=== PATIENT | male | born 1965 | race Caucasian/White ===

== ENCOUNTER 2022-07-19 09:49 | Outpatient (REF) | payer MEDICARE, MEDICAID, SELFPAY ==
[2022-07-19 15:01] LABS: Calculated LDL 195 mg/dL (<100); Cholesterol 263 mg/dL (<200); HDL Cholesterol 39 mg/dL (40-60); Triglyceride 146 mg/dL (<150)
== END 2022-07-19 09:50 | disposition home or self-care (01) ==
LOC: NCHCN 09:49
PROVIDERS: PCP Family Medicine; Visit Provider Family Medicine
DX: Z13.220 Encounter for screening for lipoid disorders (principal)
CPT/HCPCS: 80061

== ENCOUNTER 2023-05-02 10:56 | Outpatient (REF) | payer MEDICARE, MEDICAID, SELFPAY ==
[2023-05-02 14:34] LABS: HCT 46.4 % (40.0-50.0); HGB 15.9 g/dL (13.5-17.5); MCH 32.7 pg (27.0-33.0); MCHC 34.3 % (32.0-36.0); MCV 96 fL (80-95); MPV 11.3 fL (8.0-11.0); Platelet Count 194 10^3/uL (130-400); RBC 4.86 10^6/uL (4.36-5.78); RDW 13.1 % (11.8-14.1); RDW-SD 45.7 fL; WBC 7.11 10^3/uL (4.4-10.8)
[2023-05-02 14:39] LABS: ALT 85 U/L (16-63); AST 89 U/L (15-37); Albumin 3.8 g/dL (3.4-5.0); Alkaline Phosphatase 82 U/L (46-116); Anion Gap 5.6 mmol/L (3-11); BUN 14 mg/dL (7-18); Bilirubin, Total 0.4 mg/dL (0.2-1.0); CO2 30.4 mmol/L (21.0-32.0); CREATININE 1.1 mg/dL (0.70-1.30); Calcium 9.7 mg/dL (8.5-10.1); Chloride 99 mmol/L (98-107); Estimated GFR 78.79 (mL/min/1.73m2); Glucose 147 mg/dL (74-106); Sodium 135 mmol/L (136-145); Total Protein 7.8 g/dL (6.4-8.2)
== END 2023-05-02 10:57 | disposition home or self-care (01) ==
LOC: NCHCN 10:56
PROVIDERS: PCP Family Medicine; Visit Provider Family Medicine
DX: R56.9 Unspecified convulsions (principal); E78.5 Hyperlipidemia, unspecified
CPT/HCPCS: 80053; 85027

== ENCOUNTER 2023-06-13 12:25 | Outpatient (REF) | payer MEDICARE, MEDICAID, SELFPAY ==
[2023-06-13 14:29] LABS: ALT 45 U/L (16-63); AST 48 U/L (15-37); Albumin 3.8 g/dL (3.4-5.0); Alkaline Phosphatase 93 U/L (46-116); BUN 19 mg/dL (7-18); Bilirubin, Total 0.3 mg/dL (0.2-1.0); CREATININE 0.9 mg/dL (0.70-1.30); Calcium 9.1 mg/dL (8.5-10.1); Chloride 105 mmol/L (98-107); Estimated GFR 100.24 (mL/min/1.73m2); Glucose 96 mg/dL (74-106); Potassium 4.6 mmol/L (3.5-5.1); Sodium 140 mmol/L (136-145); Total Protein 7.6 g/dL (6.4-8.2)
== END 2023-06-13 12:26 | disposition home or self-care (01) ==
LOC: NCHCN 12:25
PROVIDERS: PCP Family Medicine; Visit Provider Family Medicine
DX: I10 Essential (primary) hypertension (principal); R56.9 Unspecified convulsions; Z51.81 Encounter for therapeutic drug level monitoring; Z79.899 Other long term (current) drug therapy
CPT/HCPCS: 80053; 80164

== ENCOUNTER 2024-04-21 14:38 | Outpatient (REF) | payer MEDICARE, MEDICAID, SELFPAY ==
[2024-04-21 16:10] LABS: Calculated LDL 159 mg/dL (<100); Cholesterol 244 mg/dL (<200); HDL Cholesterol 33 mg/dL (40-60); Triglyceride 260 mg/dL (<150)
== END 2024-04-21 14:39 | disposition home or self-care (01) ==
LOC: NCHCN 14:38
PROVIDERS: PCP Family Medicine; Visit Provider Family Medicine
DX: E78.5 Hyperlipidemia, unspecified (principal)
CPT/HCPCS: 80061

== ENCOUNTER 2024-07-08 08:15 | Outpatient (REF) | payer MEDICARE, MEDICAID, SELFPAY ==
[2024-07-08 15:11] LABS: Calculated LDL 162 mg/dL (<100); Cholesterol 238 mg/dL (<200); HDL Cholesterol 40 mg/dL (40-60); Triglyceride 182 mg/dL (<150)
== END 2024-07-08 08:16 | disposition home or self-care (01) ==
LOC: NCHCN 08:15
PROVIDERS: PCP Family Medicine; Visit Provider Family Medicine
DX: Z13.220 Encounter for screening for lipoid disorders (principal)
CPT/HCPCS: 80061

== ENCOUNTER 2024-10-22 16:12 | Outpatient (REF) | payer MEDICARE, MEDICAID, SELFPAY ==
[2024-10-22 15:51] LABS: Anion Gap 9.3 mmol/L (3-11); BUN 15 mg/dL (7-18); CO2 24.7 mmol/L (21.0-32.0); CREATININE 0.9 mg/dL (0.70-1.30); Calcium 9.4 mg/dL (8.5-10.1); Chloride 103 mmol/L (98-107); Glucose 106 mg/dL (74-106); Potassium 4.8 mmol/L (3.5-5.1); Sodium 137 mmol/L (136-145)
== END 2024-10-22 16:13 | disposition home or self-care (01) ==
LOC: NCHCN 16:12
PROVIDERS: PCP Family Medicine; Visit Provider Family Medicine
DX: E87.5 Hyperkalemia (principal)
CPT/HCPCS: 80048

== ENCOUNTER 2025-03-24 15:56 | Outpatient (REF) | payer MEDICARE, MEDICAID, SELFPAY ==
[2025-03-24 15:20] LABS: ALT 36 U/L (16-63); AST 46 U/L (15-37); Albumin 4.3 g/dL (3.4-5.0); Alkaline Phosphatase 108 U/L (46-116); Anion Gap 6.8 mmol/L (3-11); BUN 15 mg/dL (7-18); Bilirubin, Total 0.2 mg/dL (0.2-1.0); CO2 29.2 mmol/L (21.0-32.0); Calcium 9.7 mg/dL (8.5-10.1); Chloride 102 mmol/L (98-107); Estimated GFR 99.00 (mL/min/1.73m2); Glucose 111 mg/dL (74-106); Potassium 5.3 mmol/L (3.5-5.1); Sodium 138 mmol/L (136-145); Total Protein 8.3 g/dL (6.4-8.2)
== END 2025-03-24 15:57 | disposition home or self-care (01) ==
LOC: NCHCN 15:56
PROVIDERS: PCP Family Medicine; Visit Provider Family Medicine
DX: E78.5 Hyperlipidemia, unspecified (principal)
CPT/HCPCS: 80053

== ENCOUNTER 2025-04-14 19:28 | Outpatient (REF) | payer MEDICARE, MEDICAID, SELFPAY ==
[2025-04-14 19:08] LABS: ALT 30 U/L (16-63); AST 36 U/L (15-37); Albumin 4.3 g/dL (3.4-5.0); Alkaline Phosphatase 101 U/L (46-116); Anion Gap 8.7 mmol/L (3-11); BUN 20 mg/dL (7-18); Bilirubin, Total 0.3 mg/dL (0.2-1.0); CO2 28.3 mmol/L (21.0-32.0); Calcium 9.6 mg/dL (8.5-10.1); Chloride 102 mmol/L (98-107); Estimated GFR 77.81 (mL/min/1.73m2); Glucose 96 mg/dL (74-106); Potassium 4.7 mmol/L (3.5-5.1); Sodium 139 mmol/L (136-145); Total Protein 8.4 g/dL (6.4-8.2)
== END 2025-04-14 19:29 | disposition home or self-care (01) ==
LOC: NCHCN 19:28
PROVIDERS: PCP Family Medicine; Visit Provider Family Medicine
DX: E78.5 Hyperlipidemia, unspecified (principal)
CPT/HCPCS: 80053

== ENCOUNTER 2025-06-07 15:17 | Outpatient (REF) | payer MEDICARE, MEDICAID, SELFPAY ==
[2025-06-07 18:18] LABS: Abs Immature Grans 0.03 10^3/uL (0.0-0.06); HCT 50.1 % (40.0-50.0); HGB 16.7 g/dL (13.5-17.5); Immature Grans % 0.4 %; MCH 31.5 pg (27.0-33.0); MCHC 33.3 % (32.0-36.0); MCV 94 fL (80-95); MPV 11.6 fL (8.0-11.0); Platelet Count 235 10^3/uL (130-400); RBC 5.31 10^6/uL (4.36-5.78); RDW 12.9 % (11.8-14.1); RDW-SD 44.0 fL; WBC 7.85 10^3/uL (4.4-10.8)
[2025-06-07 18:32] LABS: ALT 41 U/L (16-63); AST 49 U/L (15-37); Albumin 4.2 g/dL (3.4-5.0); Alkaline Phosphatase 106 U/L (46-116); Anion Gap 6.4 mmol/L (3-11); BUN 17 mg/dL (7-18); Bilirubin, Total 0.3 mg/dL (0.2-1.0); C-Reactive Protein 0.68 mg/dL (<or=0.5); CO2 31.6 mmol/L (21.0-32.0); Calcium 9.2 mg/dL (8.5-10.1); Chloride 103 mmol/L (98-107); Glucose 101 mg/dL (74-106); Potassium 4.7 mmol/L (3.5-5.1); Sodium 141 mmol/L (136-145); Total Protein 8.5 g/dL (6.4-8.2)
== END 2025-06-07 15:18 | disposition home or self-care (01) ==
LOC: LBN 15:17
PROVIDERS: PCP Family Medicine; Visit Provider Internal Medicine Rheumatology
DX: L40.50 Arthropathic psoriasis, unspecified (principal); Z79.60 Long term (current) use of unspecified immunomodulators and immunosuppressants
CPT/HCPCS: 80053; 85025; 86140